=== PATIENT | female | born 1995 | race African-American/Black ===

== ENCOUNTER 2023-06-05 11:02 | Emergency (ER) | payer MEDICAID ==
[~2023-06-05] VITALS: Ht 167.6 cm; Wt 112.5 kg
[2023-06-05 11:26] VITALS: BP 131/77; PULSE 78; RESP 20; TEMP 98; O2SAT 99
[2023-06-05] MEDS ORDERED: IBUP-2213 PO (12:13)
[2023-06-05] MEDS ORDERED: BENZ-300 PO (12:13)
== END 2023-06-05 12:16 | disposition home or self-care (01) ==
LOC: MED 11:02
DX: J02.9 Acute pharyngitis, unspecified (principal); Z79.899 Other long term (current) drug therapy
CPT/HCPCS: 99282